=== PATIENT | male | born 1965 | race Caucasian/White ===

== ENCOUNTER → 2022-04-19 | Day surgery (SDC) | payer OTHER ==
[~2022-04-19] MED LIST: FENTANYL CITRATE/PF 100MCG/2 ML INJ ONE; FINASTERIDE5 MG PO; LIPITOR10 MG PO; METOCLOPRAMIDE HCL 10 MG/2ML VIAL ONE; MIDAZOLAM HCL 2 MG/2 ML VIAL ONE; PROPOFOL IV EMULSION 10 MG/ML 20 ML VIAL ONE
[2022-04-19 14:00] VITALS: BP 132/65
== END | disposition home or self-care (01) ==
LOC: OR 09:31
PROVIDERS: ATTEND Internal Medicine Gastroenterology
DX: Z12.11 Encounter for screening for malignant neoplasm of colon (principal); D12.3 Benign neoplasm of transverse colon; D12.4 Benign neoplasm of descending colon; K57.30 Diverticulosis of large intestine without perforation or abscess without bleeding; K64.8 Other hemorrhoids; Z71.3 Dietary counseling and surveillance; E78.5 Hyperlipidemia, unspecified; N40.0 Benign prostatic hyperplasia without lower urinary tract symptoms; Z01.810 Encounter for preprocedural cardiovascular examination; Z01.812 Encounter for preprocedural laboratory examination; Z20.822 Contact with and (suspected) exposure to COVID-19; Z79.899 Other long term (current) drug therapy; Z68.30 Body mass index [BMI] 30.0-30.9, adult; Z86.16 Personal history of COVID-19
CPT/HCPCS: 0223U; 36415; 45384; 45385; 93005; J2250; J2704; J2765; J3010; 45378

== ENCOUNTER 2024-10-25 18:51 | Observation (INO) | payer BC, OTHER ==
[~2024-10-25] VITALS: Ht 180.3 cm; Wt 106.6 kg
[~2024-10-25 18:51] MED LIST changes: -FENTANYL CITRATE/PF 100MCG/2 ML INJ ONE; -METOCLOPRAMIDE HCL 10 MG/2ML VIAL ONE; -MIDAZOLAM HCL 2 MG/2 ML VIAL ONE; -PROPOFOL IV EMULSION 10 MG/ML 20 ML VIAL ONE
[2024-10-25 19:10] LABS: BASOPHILS % 0.4 % (0.0-1.0); EOSINOPHILS % 0.1 % (0.0-6.0); HEMATOCRIT 51.4 % (38.2-49.6); HEMOGLOBIN 17.7 g/dL (14.0-18.0); LYMPHOCYTES # (AUTO) 1.1 (1.0-3.2); MEAN CORPUSCULAR HEMOGLOBIN 29.4 pg (28-32); MEAN CORPUSCULAR HGB CONC 34.4 g/dL (31-35); MEAN CORPUSCULAR VOLUME 85.2 fL (81-99); MONOCYTES # (AUTO) 0.2 (0.2-0.8); MONOCYTES % 2.5 % (4.4-11.3); NEUTROPHILS # (AUTO) 5.8 (2.1-6.9); NEUTROPHILS % 81.3 % (38.7-80.0); PLATELET COUNT 257 x10e3/uL (140-360); RED BLOOD COUNT 6.03 x10e6/uL (4.3-5.7); RED CELL DISTRIBUTION WIDTH 12.6 % (11.7-14.4); WHITE BLOOD COUNT 7.11 x10e3/uL (4.8-10.8)
[2024-10-25] MEDS ORDERED: SODIUM CHLORIDE FLUSH 10 ML SYR IV PRN (19:15)
[2024-10-25] MEDS: Morphine 4mg INJECTION 4 MG/ML INJ IV ONE (19:26)
[2024-10-25] MEDS: ONDANSETRON HCL INJ 2MG/ML 2ML 2 MG/ML VIAL IV STA (19:26)
[2024-10-25 19:28] LABS: ALANINE AMINOTRANSFERASE 66 IU/L (0-55); ALBUMIN 4.2 g/dL (3.5-5.0); ALKALINE PHOSPHATASE 131 IU/L (40-150); ANION GAP 18.2 mmol/L (8-16); BILIRUBIN,TOTAL 0.5 mg/dL (0.2-1.2); BLOOD UREA NITROGEN 13 mg/dL (7-26); BUN/CREATININE RATIO 9 (6-25); CARBON DIOXIDE 22 mmol/L (22-29); CHLORIDE 101 mmol/L (98-107); CREATININE, SERUM 1.39 mg/dL (0.72-1.25); EST GLOMERULAR FILTRATION RATE 59 ML/MIN (>=60); GLUCOSE 192 mg/dL (74-118); POTASSIUM 4.2 mmol/L (3.5-5.1); SODIUM 137 mmol/L (136-145); TOTAL PROTEIN 8.4 g/dL (6.5-8.1)
[2024-10-25 19:34] LABS: TROPONIN I < 0.001 ng/mL (0-0.300)
[2024-10-25 22:51] VITALS: PULSE 75; RESP 13; TEMP 98.2
[2024-10-26] VITALS (10 sets, daily range): BP systolic 122–144; BP diastolic 84–98; PULSE 71–94; RESP 16–21; TEMP 97.4–98.7; O2SAT 95–100
[2024-10-26] MEDS ORDERED: Morphine 4mg INJECTION 4 MG/ML INJ IV PRN (00:15)
[2024-10-26] MEDS ORDERED: SODIUM CHLORIDE FLUSH 10 ML SYR INJ PRN (00:15)
[2024-10-26] MEDS ORDERED: ONDANSETRON HCL INJ 2MG/ML 2ML 2 MG/ML VIAL IV PRN (00:15)
[2024-10-26] MEDS: ASPIRIN 81 MG CHEW TAB PO ONE (00:23)
[2024-10-26 04:10] LABS: TROPONIN I 0.005 ng/mL (0-0.300)
[2024-10-26] MEDS ORDERED: ASPIRIN81 MG PO (04:55)
[2024-10-26] MEDS ORDERED: MONTELUKAST SOD10 MG PO (04:55)
[2024-10-26] MEDS: ASPIRIN 325 MG TAB EC PO SCH (08:35)
[2024-10-26 14:59] LABS: CREATINE KINASE 56 IU/L (30-200)
[2024-10-26 15:09] LABS: TROPONIN I < 0.001 ng/mL (0-0.300)
== END 2024-10-26 20:30 | disposition home or self-care (01) ==
LOC: ER 19:13 → ERHOLD 10-26 00:12 → MED/SURG2 10-26 01:31
PROVIDERS: ADMIT Family Medicine; ATTEND Family Medicine
DX: R07.9 Chest pain, unspecified (principal); N17.9 Acute kidney failure, unspecified; E66.9 Obesity, unspecified; Z68.32 Body mass index [BMI] 32.0-32.9, adult; E78.5 Hyperlipidemia, unspecified; Z82.49 Family history of ischemic heart disease and other diseases of the circulatory system
CPT/HCPCS: 36415 ×2; 71045; 80053; 80320; 82550; 83690; 83880; 84484 ×2; 85025; 85379; 93005; 93017; 94760; 94799; 99284; G0378; J2270; J2405